=== PATIENT | female | born 2000 | race Caucasian/White ===

== ENCOUNTER → 2021-09-03 14:48 | Outpatient (CLI) | payer SELFPAY ==
--- NOTE | 2021-09-03 14:55 | US_ITS ---
STUDY: ULTRASOUND OF THE FEMALE PELVIS - COMPLETE REASON FOR EXAM: Female, 21 years old. Pelvic pain LMP: 08/05/2021 TECHNIQUE: Transabdominal and Transvaginal TECHNICAL QUALITY: Adequate. COMPARISON: None. FINDINGS: The uterus is anteverted and is in a midline position. The uterus measures 7.9 x 5.5 x 4.3 cm. Normal uterine cervix. The endometrium measures 10.2 mm in thickness, and is hyperechoic. There is no demonstrated endometrial mass. There is no demonstrated myometrial mass. I.U.D. - The patient does not have an I.U.D. The right ovary is visualized. The right ovary measures 3 x 1.8 x 1.6 cm. There is no right ovarian cyst or ovarian mass. There is no visualized right adnexal mass or complex lesion. There is normal arterial and normal venous vascularity. The left ovary is visualized. The left ovary measures 3.9 x 2.5 x 1.9 cm. There is no left ovarian cyst or ovarian mass. There is no visualized left adnexal mass or complex lesion. There is normal arterial and normal venous vascularity. There is minimal fluid in the cul-de-sac, likely physiologic. The pre void volume of the bladder was 511 ml, no significant postvoid residual noted. Polycystic ovary disease: No. US/Pelvic (Non ) IMPRESSION: No suspicious sonographic findings, mild free fluid in the cul-de-sac is likely physiologic Electronically Signed: Cuate Baugh MD at 17:43 EST , Service support ,
--- NOTE | 2021-09-03 14:55 | US_ITS ---
STUDY: ULTRASOUND OF THE FEMALE PELVIS - COMPLETE REASON FOR EXAM: Female, 21 years old. Pelvic pain LMP: 08/05/2021 TECHNIQUE: Transabdominal and Transvaginal TECHNICAL QUALITY: Adequate. COMPARISON: None. FINDINGS: The uterus is anteverted and is in a midline position. The uterus measures 7.9 x 5.5 x 4.3 cm. Normal uterine cervix. The endometrium measures 10.2 mm in thickness, and is hyperechoic. There is no demonstrated endometrial mass. There is no demonstrated myometrial mass. I.U.D. - The patient does not have an I.U.D. The right ovary is visualized. The right ovary measures 3 x 1.8 x 1.6 cm. There is no right ovarian cyst or ovarian mass. There is no visualized right adnexal mass or complex lesion. There is normal arterial and normal venous vascularity. The left ovary is visualized. The left ovary measures 3.9 x 2.5 x 1.9 cm. There is no left ovarian cyst or ovarian mass. There is no visualized left adnexal mass or complex lesion. There is normal arterial and normal venous vascularity. There is minimal fluid in the cul-de-sac, likely physiologic. The pre void volume of the bladder was 511 ml, no significant postvoid residual noted. Polycystic ovary disease: No. US/Transvaginal Non- IMPRESSION: No suspicious sonographic findings, mild free fluid in the cul-de-sac is likely physiologic Electronically Signed: Cuate Baugh MD at 17:43 EST , Service support ,
[2021-09-08 14:57] LABS: HPV Reflexed? NOT INDICATED
== END ==
PROVIDERS: PCP Family Medicine; Referring Provider Obstetrics & Gynecology; Visit Provider Obstetrics & Gynecology
DX: R10.2 Pelvic and perineal pain (principal); Z12.4 Encounter for screening for malignant neoplasm of cervix
CPT/HCPCS: 76830; 76856; 88175; G0145